=== PATIENT | female | born 1985 | race American Indian/Alaskan Native ===

== ENCOUNTER 2020-06-26 02:24 | Emergency (ER) | payer OTHER, SELFPAY ==
[2020-06-26 03:50] LABS: Bilirubin,Urine NEG (Negative); Blood,Urine MOD (Negative); Color,Urine Yellow (Yellow); Mucus,Urine 1+ /HPF; Urobilinogen,Urine < 2.0 mg/dL (<2.0)
[2020-06-26 03:55] LABS: HCG Qualitative,Urine Negative (Negative)
--- NOTE | 2020-06-26 07:55 | XRay Report ---
CHEST 2 VIEWS INDICATION: SOB, cough. COMPARISON: None FINDINGS: Support devices: None. Heart: Within normal limits. Lungs/pleura: No acute air space or interstitial disease. No pneumothorax. Additional findings: None. IMPRESSION: No abnormality identified. Signer Name: Enmanuel Martines Jr, MD Signed: 06/26/2020 7:51 AM Workstation Name: [id number]
[2020-06-26 08:21] VITALS: BP 185/115
--- NOTE | 2020-06-26 08:55 | Emergency Department Report ---
ED General Adult HPI - General Chief complaint: Upper Respiratory Infection Stated complaint: HIGH FEVER/CHEST PAIN/STOMACH PAIN Time Seen by Provider: 06/26/20 07:39 Source: patient Mode of arrival: Ambulatory Limitations: No Limitations - History of Present Illness Initial comments: 34-year-old female, no past medical history, presents to ED with possible COVID- 19 symptoms. Patient states 4 days ago she began experiencing fever, sore throat, loss of smell and taste, cough, mild chest pain and shortness of breath. Patient states she has not received her COVID-19 vaccine. Patient has not been tested for COVID-19. Severity scale (0 -10): 0 - Related Data Previous Rx's Medication Instructions Recorded Last Taken Type Cyclobenzaprine [Flexeril] 10 mg PO TID PRN #20 tablet 02/01/18 Unknown Rx Ibuprofen [Ibuprofen 800] 800 mg PO Q6H PRN #15 tablet 02/01/18 Unknown Rx Albuterol Sulfate [Proventil Hfa] 2 puff IH Q4HR PRN #1 hfa.[email or web address] 06/26/20 Unknown Rx Allergies Allergy/AdvReac Type Severity Reaction Status Date / Time Latex, Natural Rubber Allergy Rash Verified 03/06/15 20:54 ED Review of Systems ROS: Stated complaint: HIGH FEVER/CHEST PAIN/STOMACH PAIN Other details as noted in HPI Comment: All other systems reviewed and negative Constitutional: fever ENT: throat pain Respiratory: cough, shortness of breath Cardiovascular: chest pain Gastrointestinal: abdominal pain ED Past Medical Hx - Past Medical History Additional medical history: anemia - Social History Smoking Status: Never Smoker - Medications Home Medications: Home Medications Medication Instructions Recorded Confirmed Last Taken Type Cyclobenzaprine [Flexeril] 10 mg PO TID PRN #20 tablet 02/01/18 Unknown Rx Ibuprofen [Ibuprofen 800] 800 mg PO Q6H PRN #15 tablet 18 Unknown Rx Albuterol Sulfate [Proventil Hfa] 2 puff IH Q4HR PRN #1 hfa.aer.ad 06/26/20 Unknown Rx ED Physical Exam - General Limitations: No Limitations General appearance: alert, in no apparent distress - Head Head exam: Present: atraumatic, normocephalic - Eye Eye exam: Present: normal appearance, EOMI - ENT ENT exam: Present: mucous membranes moist - Neck Neck exam: Present: normal inspection - Respiratory Respiratory exam: Present: wheezes (Faint). Absent: respiratory distress - Cardiovascular Cardiovascular Exam: Present: regular rate, normal rhythm - GI/Abdominal GI/Abdominal exam: Present: soft. Absent: distended, tenderness - Extremities Exam Extremities exam: Present: normal inspection - Neurological Exam Neurological exam: Present: alert, oriented X3 - Psychiatric Psychiatric exam: Present: normal affect, normal mood - Skin Skin exam: Present: warm, dry, intact, normal color ED Course Vital Signs 06/26/20 06/26/20 06/26/20 02:49 08:20 08:21 Temperature 99.5 F 98.5 F Pulse Rate 98 H 81 Respiratory 12 20 20 Rate Blood Pressure 176/92 Blood Pressure 185/115 [Right] O2 Sat by Pulse 100 98 98 Oximetry - Reevaluation(s) Reevaluation #1: 06/26/20 08:52 Per nurse ambulatory O2 sats remained in the normal range. ED Medical Decision Making - EKG Data -: EKG Interpreted by Nh EKG shows normal: sinus rhythm, axis, intervals, QRS complexes Rate: normal - EKG Data Interpretation: nonspecific ST-T wave shekhar - Radiology Data Radiology results: report reviewed, image reviewed - Medical Decision Making 34-year-old female, no past medical history, presents to ED with possible COVID- 19 symptoms. Patient states 4 days ago she began experiencing fever, sore throat, loss of smell and taste, cough, mild chest pain and shortness of breath. Patient states she has not received her COVID-19 vaccine. Patient has not been tested for COVID-19. Chest x-ray is normal. O2 sats and ambulatory O2 sats are normal. Outpatient COVID-19 testing is advised. Outpatient follow-up is advised for patient's elevated blood pressure as well. - Differential Diagnosis Pneumonia, COVID-19, viral illness Critical care attestation.: If time is entered above; I have spent that time in minutes in the direct care of this critically ill patient, excluding procedure time. ED Disposition Clinical Impression: Suspected COVID-19 virus infection, Elevated blood pressure reading Disposition: TO HOME OR SELFCARE Is pt being admited?: No Condition: Stable Instructions: COVID-19 Additional Instructions: It is advised that you obtain outpatient COVID-19 testing and quarantine as indicated. It is also advised that you purchase a pulse oximeter to monitor your oxygen level. Please return to the ER if you become significantly short of breath or if your oxygen level is less than 90%. Prescriptions: Albuterol Sulfate [Proventil Hfa] 2 puff IH Q4HR PRN #1 hfa.aer.ad PRN Reason: Wheezing Referrals: PRIMARY CARE, [Primary Care Provider] - 3-5 Days [facility] [Provider Group] - 3-5 Days Forms: Work/School Release Form(ED)
--- NOTE | 2020-06-28 11:44 | Electrocardiograph Report ---
[facility] Test Date: 2020-06-26 Test Time: 03:19:50 Pat Name: PRANAV ECHOLS Department: Room: Gender: F Principal Associate: layla : 1985 Requested By: SANDRA GUERRA Order Number: [id number] Reading MD: Brijesh Corea Measurements Intervals [place] Rate: 84 P: 50 DE: 162 QRS: -10 QRSD: 94 T: -22 QT: 374 QTc: 443 Interpretive Statements Sinus rhythm Borderline T abnormalities, diffuse leads No previous ECG available for comparison Electronically Signed On 06-28-2020 11:43:42 EDT by Brijesh Corea
== END 2020-06-26 09:10 | disposition home or self-care (01) ==
LOC: ED 02:24
DX: R03.0 Elevated blood-pressure reading, without diagnosis of hypertension (principal); Z20.822 Contact with and (suspected) exposure to COVID-19; Z79.899 Other long term (current) drug therapy; Z91.040 Latex allergy status
CPT/HCPCS: 71046; 81001; 81025; 87086; 93005; 99283